=== PATIENT | male | born 1960 | race Hispanic/Latino ===

== ENCOUNTER 2021-07-27 12:22 | Inpatient (IN) | payer OTHER, SELFPAY ==
[~2021-07-27] VITALS: Ht 182.9 cm; Wt 90.7 kg
[2021-07-27] VITALS (8 sets, daily range): BP systolic 109–152; BP diastolic 57–84
[2021-07-27] MEDS ORDERED: ACETAMINOPHEN WITH CODEINE 1 TAB TAB PO ONE (12:30)
[2021-07-27 13:00] LABS: BASOPHILS % (AUTO) 0.1 % (0.0-5.0); HEMATOCRIT 46.9 % (42-54); LYMPHOCYTES % (AUTO) 5.8 % (21.0-51.0); MEAN CORPUSCULAR HEMOGLOBIN 29.1 pg (27.0-33.0); MEAN CORPUSCULAR HGB CONC 34.5 g/dL (32.0-36.0); MEAN CORPUSCULAR VOLUME 84.4 fL (79-99); MONOCYTES % (AUTO) 2.4 % (3.0-13.0); NEUTROPHILS % (AUTO) 90.7 % (40.0-77.0); PLATELET COUNT (AUTO) 388 K/uL (130-400); RED BLOOD CELL COUNT(AUTO) 5.56 MIL/uL (4.50-6.20); RED CELL DISTRIBUTION WIDTH 13.9 % (11.0-15.5); WHITE BLOOD COUNT (AUTO) 7.4 K/uL (4.8-10.8)
[2021-07-27] MEDS: ALBUTEROL INHALER 90MCG/INH IH PRN (13:06)
[2021-07-27 13:10] LABS: INR 1.03 (0.85-1.15); PROTHROMBIN TIME 11.2 SEC (9.6-11.6)
[2021-07-27 13:11] LABS: ABG BASE EXCESS 0.7 mmol/L (-2.0-3.0); ABG HCO3 22.9 mmol/L (21.0-28.0); ABG OXYGEN SATURATION 88.8 % (95.0-99.0); ABG PCO2 30 mmHg (35-48)
[2021-07-27 13:12] LABS: PARTIAL THROMBOPLASTIN TIME 34.5 SEC (26.3-35.5)
[2021-07-27 13:15] LABS: CREATININE 0.7 mg/dL (0.5-1.5); POTASSIUM 3.8 mmol/L (3.5-5.1)
[2021-07-27 13:21] LABS: ALBUMIN 2.5 g/dL (3.5-5.0); BILIRUBIN,TOTAL 0.5 mg/dL (0.2-1.0); CRP QUANTITATIVE 438.2 mg/L (0.00-9.0); TOTAL PROTEIN, SERUM 7.7 g/dL (6.0-8.3)
[2021-07-27] MEDS ORDERED: AZITHROMYCIN 250 MG TABLET PO ONE (13:30)
[2021-07-27] MEDS ORDERED: CEFTRIAXONE 1G VIAL IVP ONE (13:30)
[2021-07-27] MEDS ORDERED: 0.9%NACL 50ML 50 ML IV ONE (13:48)
[2021-07-27 13:51] LABS: B-TYPE NATRIURETIC PEPTIDE 24 pg/mL (0-100)
[2021-07-27] MEDS ORDERED: SOLU-MEDROL 125MG VIAL IVP ONE (14:30)
[2021-07-27] MEDS ORDERED: AZITHROMYCIN 500MG+NS 250ML 250 ML IV ONE (14:55)
[2021-07-27 14:59] LABS: HEMOGLOBIN A1C 7.3 % (4.0-6.0)
[2021-07-27] MEDS ORDERED: ACETAMINOPHEN 500 MG TABLET PO PRN (15:00)
[2021-07-27] MEDS ORDERED: PHARMACY COMMUNICATION**REMDESIVIR ORDER MISC SCH (15:00)
[2021-07-27] MEDS ORDERED: PANTOPRAZOLE 40 MG TAB DR PO SCH (15:00)
[2021-07-27] MEDS ORDERED: 0.9%NACL 1000ML 1,000 ML IV SCH (15:00)
[2021-07-27] MEDS: INSULIN HUMULIN R 100 UNIT/ML 3ML SQ SCH ×2 (16:30→21:05)
[2021-07-27] MEDS: BARICITINIB (EUA) 2 MG TABLET PO SCH (17:12)
[2021-07-27] MEDS ORDERED: COMPOUND IV REFRIGERATED 1 EACH IVSOLN MISC PRN (18:30)
[2021-07-27] MEDS ORDERED: REMDESIVIR (EUA) 520 200 MG in 0.9% NACL 250ML 250 ML IV SCH (20:00)
[2021-07-27 20:32] LABS: APPEARANCE,URINE Clear (CLEAR); BILIRUBIN,URINE Small (NEGATIVE); COLOR,URINE Dark Yellow (YELLOW); GLUCOSE, URINE (UA) 500 mg/dL (NEGATIVE); KETONES,URINE 15 mg/dL (NEGATIVE); LEUKOCYTE ESTERASE ,URINE Negative (NEGATIVE); NITRATE,URINE Negative (NEGATIVE); OCCULT BLOOD,URINE Negative (NEGATIVE); PROTEIN,URINE 300 mg/dL (NEGATIVE)
[2021-07-27 20:43] LABS: BACTERIA,URINE Few /HPF (None Seen); MUCUS,URINE Moderate LPF (None Seen); SQUAMOUS EPITHELIAL CELL,UR Rare /HPF (0-2)
[2021-07-27] MEDS: CEFTRIAXONE 1G VIAL IVP SCH (20:49)
[2021-07-27] MEDS: ENOXAPARIN SODIUM 40 MG/0.4 ML SYRINGE SQ SCH (20:49)
[2021-07-27] MEDS: DOXYCYCLINE HYCLATE 100 MG TABLET PO SCH (20:49)
[2021-07-27] MEDS ORDERED: FAMOTIDINE 20MG TAB PO SCH (21:00)
[2021-07-27] MEDS ORDERED: ENOXAPARIN SODIUM 60 MG/0.6 ML SQ SCH (21:00)
[2021-07-28] VITALS (8 sets, daily range): BP systolic 107–146; BP diastolic 60–77
[2021-07-28] MEDS: REMDESIVIR LABS MISC SCH (06:00)
[2021-07-28 07:00] LABS: BASOPHILS % (AUTO) 0.1 % (0.0-5.0); HEMATOCRIT 43.1 % (42-54); LYMPHOCYTES % (AUTO) 7.2 % (21.0-51.0); MEAN CORPUSCULAR HEMOGLOBIN 28.9 pg (27.0-33.0); MEAN CORPUSCULAR HGB CONC 34.1 g/dL (32.0-36.0); MEAN CORPUSCULAR VOLUME 84.7 fL (79-99); MONOCYTES % (AUTO) 2.4 % (3.0-13.0); NEUTROPHILS % (AUTO) 89.7 % (40.0-77.0); PLATELET COUNT (AUTO) 394 K/uL (130-400); RED BLOOD CELL COUNT(AUTO) 5.09 MIL/uL (4.50-6.20); RED CELL DISTRIBUTION WIDTH 14.1 % (11.0-15.5); WHITE BLOOD COUNT (AUTO) 6.7 K/uL (4.8-10.8)
[2021-07-28 07:30] LABS: ALBUMIN 2.1 g/dL (3.5-5.0); BILIRUBIN,TOTAL 0.3 mg/dL (0.2-1.0); CREATININE 0.6 mg/dL (0.5-1.5); MAGNESIUM 2.3 mg/dL (1.80-2.40)
[2021-07-28] MEDS: INSULIN HUMULIN R 100 UNIT/ML 3ML SQ SCH ×4 (08:01→21:04)
[2021-07-28] MEDS: DOXYCYCLINE HYCLATE 100 MG TABLET PO SCH ×2 (08:02→21:04)
[2021-07-28] MEDS: SOLU-MEDROL 40MG VIAL IVP SCH ×3 (08:02→21:04)
[2021-07-28] MEDS: FOLIC ACID 1 MG TABLET PO SCH (08:02)
[2021-07-28] MEDS: CEFTRIAXONE 1G VIAL IVP SCH ×2 (08:02→21:04)
[2021-07-28] MEDS: PANTOPRAZOLE 40 MG TAB DR PO SCH (08:02)
[2021-07-28] MEDS: THIAMINE HCL 100 MG TABLET PO SCH (08:02)
[2021-07-28] MEDS: ENOXAPARIN SODIUM 40 MG/0.4 ML SYRINGE SQ SCH ×2 (08:03→21:04)
[2021-07-28] MEDS: BARICITINIB (EUA) 2 MG TABLET PO SCH (08:42)
[2021-07-28] MEDS ORDERED: METF-444 PO (09:36)
[2021-07-28] MEDS ORDERED: LISI10TA24 PO (09:36)
[2021-07-28] MEDS: REMDESIVIR (EUA) 520 100 MG in 0.9% NACL 250ML 250 ML IV SCH (21:04)
[2021-07-28] MEDS: INSULIN GLARGINE 100 UNITS/ML 10 ML VIAL SQ SCH (21:04)
[2021-07-29] VITALS (7 sets, daily range): BP systolic 123–146; BP diastolic 65–88
[2021-07-29] MEDS: REMDESIVIR LABS MISC SCH (06:00)
[2021-07-29 07:00] LABS: BASOPHILS % (AUTO) 0.2 % (0.0-5.0); HEMATOCRIT 42.9 % (42-54); LYMPHOCYTES % (AUTO) 4.3 % (21.0-51.0); MEAN CORPUSCULAR HEMOGLOBIN 28.9 pg (27.0-33.0); MEAN CORPUSCULAR HGB CONC 34.3 g/dL (32.0-36.0); MEAN CORPUSCULAR VOLUME 84.4 fL (79-99); MONOCYTES % (AUTO) 2.5 % (3.0-13.0); NEUTROPHILS % (AUTO) 91.8 % (40.0-77.0); PLATELET COUNT (AUTO) 475 K/uL (130-400); RED BLOOD CELL COUNT(AUTO) 5.08 MIL/uL (4.50-6.20); RED CELL DISTRIBUTION WIDTH 14.3 % (11.0-15.5); WHITE BLOOD COUNT (AUTO) 12.3 K/uL (4.8-10.8)
[2021-07-29 07:25] LABS: ALBUMIN 2.2 g/dL (3.5-5.0); BILIRUBIN,TOTAL 0.3 mg/dL (0.2-1.0); CREATININE 0.8 mg/dL (0.5-1.5); CRP QUANTITATIVE 133.3 mg/L (0.00-9.0); POTASSIUM 4.5 mmol/L (3.5-5.1); TOTAL PROTEIN, SERUM 7.1 g/dL (6.0-8.3)
[2021-07-29] MEDS: SOLU-MEDROL 40MG VIAL IVP SCH ×2 (08:08→21:16)
[2021-07-29] MEDS: CEFTRIAXONE 1G VIAL IVP SCH ×2 (08:08→21:16)
[2021-07-29] MEDS: FOLIC ACID 1 MG TABLET PO SCH (08:09)
[2021-07-29] MEDS: PANTOPRAZOLE 40 MG TAB DR PO SCH (08:09)
[2021-07-29] MEDS: THIAMINE HCL 100 MG TABLET PO SCH (08:09)
[2021-07-29] MEDS: BARICITINIB (EUA) 2 MG TABLET PO SCH (08:09)
[2021-07-29] MEDS: ENOXAPARIN SODIUM 40 MG/0.4 ML SYRINGE SQ SCH ×2 (08:09→21:18)
[2021-07-29] MEDS: DOXYCYCLINE HYCLATE 100 MG TABLET PO SCH ×2 (08:09→21:16)
[2021-07-29] MEDS: INSULIN HUMULIN R 100 UNIT/ML 3ML SQ SCH ×4 (08:10→21:00)
[2021-07-29] MEDS ORDERED: NACL NASAL SPRAY 120 SPRAY/BOTTLE NS PRN (10:30)
[2021-07-29] MEDS ORDERED: ALBUTEROL INHALER 90MCG/INH IH PRN (10:30)
[2021-07-29] MEDS ORDERED: LORAZEPAM 0.5 MG TABLET PO PRN (15:00)
[2021-07-29] MEDS: INSULIN GLARGINE 100 UNITS/ML 10 ML VIAL SQ SCH (21:00)
[2021-07-29] MEDS: REMDESIVIR (EUA) 520 100 MG in 0.9% NACL 250ML 250 ML IV SCH (21:21)
[2021-07-29] MEDS: GUAIFENESIN-DM 200/20 MG 10 ML PO PRN (21:21)
[2021-07-30] VITALS (12 sets, daily range): BP systolic 62–148; BP diastolic 24–90
[2021-07-30] MEDS ORDERED: LORAZEPAM 2 MG/ML 1 ML VIAL ONE (02:08)
[2021-07-30] MEDS ORDERED: LORAZEPAM 2 MG/ML 1 ML VIAL IVP ONE (02:30)
[2021-07-30 05:21] LABS: BASOPHILS % (AUTO) 0.1 % (0.0-5.0); HEMATOCRIT 43.1 % (42-54); LYMPHOCYTES % (AUTO) 2.4 % (21.0-51.0); MEAN CORPUSCULAR HEMOGLOBIN 28.7 pg (27.0-33.0); MEAN CORPUSCULAR HGB CONC 34.1 g/dL (32.0-36.0); MEAN CORPUSCULAR VOLUME 84.2 fL (79-99); MONOCYTES % (AUTO) 2.1 % (3.0-13.0); NEUTROPHILS % (AUTO) 94.3 % (40.0-77.0); PLATELET COUNT (AUTO) 445 K/uL (130-400); RED BLOOD CELL COUNT(AUTO) 5.12 MIL/uL (4.50-6.20); WHITE BLOOD COUNT (AUTO) 13.9 K/uL (4.8-10.8)
[2021-07-30 05:47] LABS: ALBUMIN 2.3 g/dL (3.5-5.0); BILIRUBIN,TOTAL 0.5 mg/dL (0.2-1.0); CREATININE 0.6 mg/dL (0.5-1.5); CRP QUANTITATIVE 99.7 mg/L (0.00-9.0); POTASSIUM 3.9 mmol/L (3.5-5.1); TOTAL PROTEIN, SERUM 6.9 g/dL (6.0-8.3)
[2021-07-30] MEDS: REMDESIVIR LABS MISC SCH (06:00)
[2021-07-30] MEDS: INSULIN HUMULIN R 100 UNIT/ML 3ML SQ SCH (06:13)
[2021-07-30] MEDS: GUAIFENESIN-DM 200/20 MG 10 ML PO PRN (06:21)
[2021-07-30] MEDS ORDERED: PROPOFOL 1000 MG/100 ML 100 ML IV SCH (08:00)
[2021-07-30] MEDS ORDERED: AMIODARONE 150MG VIAL 150 MG in DEXTROSE 5%-WATER 100 ML IV SCH (08:30)
[2021-07-30] MEDS ORDERED: AMIODARONE 900MG VIAL 450 MG in DEXTROSE 5%-WATER 250 ML IV SCH (08:30)
[2021-07-30] MEDS ORDERED: AMIODARONE 900MG VIAL 360 MG in DEXTROSE 5%-WATER 200 ML IV SCH (08:30)
[2021-07-30 08:41] LABS: BASOPHILS % (AUTO) 0.8 % (0.0-5.0); HEMATOCRIT 46.4 % (42-54); LYMPHOCYTES % (AUTO) 20.4 % (21.0-51.0); MEAN CORPUSCULAR HGB CONC 32.3 g/dL (32.0-36.0); MEAN CORPUSCULAR VOLUME 89.6 fL (79-99); MONOCYTES % (AUTO) 2.9 % (3.0-13.0); NEUTROPHILS % (AUTO) 69.3 % (40.0-77.0); NUCLEATED RED BLOOD CELLS 0.7 % (0.0-0.19); PLATELET COUNT (AUTO) 228 K/uL (130-400); RED BLOOD CELL COUNT(AUTO) 5.18 MIL/uL (4.50-6.20); RED CELL DISTRIBUTION WIDTH 14.5 % (11.0-15.5); WHITE BLOOD COUNT (AUTO) 8.3 K/uL (4.8-10.8)
[2021-07-30 08:44] LABS: ABG BASE EXCESS -10.8 mmol/L (-2.0-3.0); ABG HCO3 18.4 mmol/L (21.0-28.0); ABG OXYGEN SATURATION 82.2 % (95.0-99.0); ABG PCO2 53 mmHg (35-48)
[2021-07-30] MEDS ORDERED: ASPIRIN 81MG CHEW TAB ONE (09:06)
[2021-07-30] MEDS ORDERED: SODIUM BICARB 50MEQ 50ML VIAL 50 ML ONE (09:17)
[2021-07-30] MEDS: FOLIC ACID 1 MG TABLET PO SCH (09:29)
[2021-07-30] MEDS: SOLU-MEDROL 40MG VIAL IVP SCH (09:29)
[2021-07-30] MEDS: DOXYCYCLINE HYCLATE 100 MG TABLET PO SCH (09:29)
[2021-07-30] MEDS: THIAMINE HCL 100 MG TABLET PO SCH (09:29)
[2021-07-30] MEDS: CEFTRIAXONE 1G VIAL IVP SCH (09:29)
[2021-07-30] MEDS ORDERED: HEPARIN 25,000 UNITS/250ML D5W 250 ML IV PRN (09:30)
[2021-07-30] MEDS ORDERED: PHARMACY COMMUNICATION MISC SCH (09:30)
[2021-07-30] MEDS ORDERED: INSULIN HUMULIN R 100 UNIT/ML 3ML SQ SCH ×2 (09:30→12:00)
[2021-07-30] MEDS ORDERED: SODIUM BICARB 50MEQ 50ML VIAL IV SCH (09:30)
[2021-07-30] MEDS ORDERED: ASPIRIN 81MG CHEW TAB PO SCH (09:30)
[2021-07-30] MEDS ORDERED: BIVALIRUDIN 250 MG/VIAL IV ONE (09:32)
[2021-07-30] MEDS ORDERED: HEPARIN 10,000 UNIT/10ML (1,000 UNIT/ML) VIAL ONE (09:33)
[2021-07-30] MEDS ORDERED: LIDOCAINE HCL 400MG/20ML VIAL ONE (09:33)
[2021-07-30] MEDS ORDERED: IOHEXOL 350 MG/ML 100ML INFUS..BTL IV ONE (09:33)
[2021-07-30] MEDS ORDERED: NITROGLYCERIN 2 MG VIAL IV ONE (09:33)
[2021-07-30 09:58] LABS: ABG BASE EXCESS -12.2 mmol/L (-2.0-3.0); ABG HCO3 19.9 mmol/L (21.0-28.0); ABG OXYGEN SATURATION 75.7 % (95.0-99.0); ABG PCO2 75 mmHg (35-48)
[2021-07-30] MEDS ORDERED: SODIUM BICARB 50MEQ 50ML VIAL IVPB SCH (10:00)
[2021-07-30] MEDS ORDERED: NOREPINEPHRINE 4MG/NS 250ML 250 ML IV SCH (10:00)
[2021-07-30] MEDS: BARICITINIB (EUA) 2 MG TABLET PO SCH (10:02)
[2021-07-30 10:28] LABS: CARBON DIOXIDE 11 mmol/L (21-32); CREATININE 1.5 mg/dL (0.5-1.5); GLOMERULAR FILTR. RATE CALC 51 mL/min (>60); UREA NITROGEN, BLOOD 13 mg/dL (7-18)
[2021-07-30 10:30] LABS: ALANINE AMINOTRANSFERASE 94 U/L (12-78); ASPARTATE AMINOTRANSFERASE 198 U/L (10-37); BILIRUBIN,TOTAL 0.4 mg/dL (0.2-1.0); TOTAL PROTEIN, SERUM 3.5 g/dL (6.0-8.3)
[2021-07-30 10:37] LABS: CHLORIDE 60 mmol/L (101-111); POTASSIUM 2.1 mmol/L (3.5-5.1); SODIUM SERUM 89 mmol/L (136-145)
[2021-07-30] MEDS ORDERED: ATROPINE 1MG SYG IVP ONE ×2 (10:57→13:44)
[2021-07-30] MEDS ORDERED: ATROPINE 1MG SYG IVP SCH (11:00)
[2021-07-30 11:09] LABS: INR 1.45 (0.85-1.15); PROTHROMBIN TIME 15.3 SEC (9.6-11.6)
[2021-07-30 11:11] LABS: PARTIAL THROMBOPLASTIN TIME 39.3 SEC (26.3-35.5)
[2021-07-30 11:22] LABS: CREATININE 1.6 mg/dL (0.5-1.5)
[2021-07-30] MEDS ORDERED: EPINEPHRINE 1MG SYG 10ML IVP SCH (11:30)
[2021-07-30] MEDS ORDERED: LIDOCAINE PF 100MG/5ML (2%) SYRINGE 5ML IVP ONE (13:44)
[2021-07-30] MEDS ORDERED: NOREPINEPHRINE BITARTRATE 1 MG/1 ML ML IV ONE (13:44)
[2021-07-30] MEDS ORDERED: ROCURONIUM BROMIDE 10MG/1ML 5ML VL IV ONE (13:44)
[2021-07-30] MEDS ORDERED: ETOMIDATE 20MG VIAL IVP ONE (13:44)
[2021-07-30] MEDS ORDERED: CACL 1GM SYG IVP ONE (13:44)
[2021-07-30] MEDS ORDERED: AMIODARONE 150MG VIAL IV ONE (13:44)
[2021-07-30] MEDS ORDERED: SODIUM BICARB 8.4% 50ML SYRINGE IVP ONE (13:44)
[2021-07-30] MEDS ORDERED: EPINEPHRINE 1MG SYG 10ML IVP ONE (13:44)
[2021-07-30] MEDS ORDERED: MAGNESIUM SULFATE 1 GM/2 ML VIAL IM ONE (13:44)
[2021-07-31] MEDS ORDERED: ASPIRIN 81 MG EC TAB PO SCH (09:00)
[2021-07-31] MEDS ORDERED: PANTOPRAZOLE 40 MG/VIAL IVP SCH (09:00)
== END 2021-07-30 13:45 | DRG 208 ==
LOC: EDH 12:22 → EDHIP 12:23 → 4AH 07-29 14:22 → 2BH 07-30 09:00
PROVIDERS: ADMIT Internal Medicine; ATTEND Internal Medicine
PROC: XW033E5 Introduction of Remdesivir Anti-infective into Peripheral Vein, Percutaneous Approach, New Technology Group 5 (ICD-10-PCS; 2021-07-27)
PROC: XW0DXM6 Introduction of Baricitinib into Mouth and Pharynx, External Approach, New Technology Group 6 (ICD-10-PCS; 2021-07-27)
PROC: 5A12012 Performance of Cardiac Output, Single, Manual (ICD-10-PCS; principal; 2021-07-30)
PROC: 5A1935Z Respiratory Ventilation, Less than 24 Consecutive Hours (ICD-10-PCS; 2021-07-30)
PROC: 5A12012 Performance of Cardiac Output, Single, Manual (ICD-10-PCS; 2021-07-30)
PROC: 05HY33Z Insertion of Infusion Device into Upper Vein, Percutaneous Approach (ICD-10-PCS; 2021-07-30)
PROC: 0BH17EZ Insertion of Endotracheal Airway into Trachea, Via Natural or Artificial Opening (ICD-10-PCS; 2021-07-30)
DX: U07.1 COVID-19 (principal); J12.82 Pneumonia due to coronavirus disease 2019; J80 Acute respiratory distress syndrome; A41.89 Other specified sepsis; D68.69 Other thrombophilia; A08.39 Other viral enteritis; G93.40 Encephalopathy, unspecified; I47.2 Ventricular tachycardia; I10 Essential (primary) hypertension; I49.01 Ventricular fibrillation; T38.0X5A Adverse effect of glucocorticoids and synthetic analogues, initial encounter; E11.65 Type 2 diabetes mellitus with hyperglycemia; Z66 Do not resuscitate; Z78.9 Other specified health status; Z87.891 Personal history of nicotine dependence; Y92.89 Other specified places as the place of occurrence of the external cause; Z79.84 Long term (current) use of oral hypoglycemic drugs
CPT/HCPCS: 31500; 36415; 36600; 71045; 80048; 80053; 81001; 82435; 82550; 82803; 82947; 82948; 83036; 83605; 83615; 83735; 83874; 83880; 84132; 84145; 84295; 84484; 85018; 85025; 85378; 85610; 85730; 86140; 87040; 87088; 87635; 87804; 87880; 92950; 93005; 93970; 94770; C1751; C9803; G0378; J0171; J0282; J0456; J0461; J0583; J0696; J1644; J1650; J1815; J2001; J2060; J2704; J2920; J2930; J3475; J3490; J7030; J7050; J7060; Q9967